=== PATIENT | female | born 1970 | race Caucasian/White ===

== ENCOUNTER 2017-01-18 17:09 | Emergency (ER) | payer OTHER ==
[2017-01-18 19:11] LABS: BILIRUBIN NEGATIVE (NEGATIVE); BLOOD 3+ Ery/uL (NEGATIVE); CLARITY CLEAR (CLEAR); COLOR YELLOW (YELLOW); GLUCOSE (U) NORMAL (NORMAL); KETONE (U) NEGATIVE (NEGATIVE); LEUKOCYTES NEGATIVE Leu/uL (NEGATIVE); NITRITE NEGATIVE (NEGATIVE); PROTEIN TRACE (LOW) mg/dL (NEGATIVE); SPECIFIC GRAVITY >=1.030 (1.001-1.030); UROBILINOGEN 0.2 mg/dL (0.2-1.0); pH 5.5 (5.0-9.0)
[2017-01-18 19:15] LABS: BACTERIA TRACE; MUCOUS LARGE
[2017-01-18 19:34] LABS: ALBUMIN 4.4 g/dL (3.5-5.0); BILIRUBIN - TOTAL 0.2 mg/dL (0.1-1.0); CREATININE 0.8 mg/dL (0.5-1.0); POTASSIUM 3.8 mmol/L (3.5-5.1); TOTAL PROTEIN 7.4 g/dL (6.4-8.3)
[2017-01-18 19:38] LABS: BASOPHIL 1.4 % (0-2); EOSINOPHIL 2.7 % (0-5); HCT 40.8 % (37.0-47.0); HGB 13.6 g/dl (12.5-16.0); MCH 29.8 pg (25.0-31.0); MCHC 33.3 g/dL (32.0-36.0); MCV 89.3 fL (78.0-100.0); MONOCYTE 6.1 % (0-12); MPV 9.8 fL (6.0-9.5); NEUTROPHIL 55.8 % (41-80); PLT 297 K/uL (150-400); RBC 4.57 M/uL (4.20-5.40); RDW 14.2 % (11.5-14.0); WBC 9.2 K/uL (4.0-10.5)
== END 2017-01-18 21:02 | disposition home or self-care (01) ==
LOC: FER 17:09
PROVIDERS: Nurse Practitioner
DX: N91.2 Amenorrhea, unspecified (principal); N83.202 Unspecified ovarian cyst, left side; Z88.6 Allergy status to analgesic agent
CPT/HCPCS: 36415; 80053; 81001; 85025

== ENCOUNTER 2017-01-31 00:40 | Emergency (ER) | payer OTHER ==
[2017-01-31 01:43] LABS: BASOPHIL 0.6 % (0-2); EOSINOPHIL 1.7 % (0-5); HCT 37.4 % (37.0-47.0); HGB 12.6 g/dl (12.5-16.0); LYMPHOCYTE 35.6 % (15-48); MCH 30.3 pg (25.0-31.0); MCHC 33.7 g/dL (32.0-36.0); MCV 89.9 fL (78.0-100.0); MONOCYTE 5.7 % (0-12); MPV 9.7 fL (6.0-9.5); NEUTROPHIL 56.4 % (41-80); PLT 295 K/uL (150-400); RBC 4.16 M/uL (4.20-5.40); RDW 14.3 % (11.5-14.0); WBC 8.4 K/uL (4.0-10.5)
[2017-01-31 01:47] LABS: INR 0.94 (0.9-1.2); PROTHROMBIN TIME 12.2 SECONDS (11.7-14.0); PTT 25.4 SECONDS (23.2-31.4)
[2017-01-31 01:48] LABS: D-DIMER 0.91 ug/mLFEU (0.00-0.41)
[2017-01-31 01:56] LABS: CKMB 2.18 ng/mL (0.97-4.94); TROPONIN T < 0.010 ng/mL
[2017-01-31 01:57] LABS: ALBUMIN 4.2 g/dL (3.5-5.0); BILIRUBIN - TOTAL 0.4 mg/dL (0.1-1.0); CREATININE 0.8 mg/dL (0.5-1.0); GLOBULIN (CALCULATION) 3.1 g/dL (2.2-4.2); POTASSIUM 3.7 mmol/L (3.5-5.1); TOTAL PROTEIN 7.3 g/dL (6.4-8.3)
== END 2017-01-31 04:28 | disposition home or self-care (01) ==
LOC: FER 00:40
PROVIDERS: Emergency Medicine
DX: M94.0 Chondrocostal junction syndrome [Tietze] (principal); Z86.711 Personal history of pulmonary embolism; Z86.718 Personal history of other venous thrombosis and embolism; Z88.6 Allergy status to analgesic agent
CPT/HCPCS: 36415; 71020; 71275; 80053; 82550; 82553; 84484; 85025; 85379; 85610; 85730; 93005; J1885; Q9967